=== PATIENT | male | born 1970 | race Caucasian/White ===

== ENCOUNTER 2017-01-06 04:59 | Emergency (ER) | payer OTHER ==
[~2017-01-06] VITALS: Ht 175.3 cm; Wt 95.3 kg
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
[2017-01-06 07:36] VITALS: BP 138/80
== END 2017-01-06 08:21 ==
LOC: ERH 04:59
DX: F10.129 Alcohol abuse with intoxication, unspecified (principal)